=== PATIENT | male | born 1950 | race Caucasian/White ===

== ENCOUNTER 2017-11-10 23:00 | Inpatient (IN) | payer OTHER ==
[~2017-11-10] VITALS: Ht 165.1 cm; Wt 81.1 kg
[~2017-11-10 23:00] MED LIST: ALEVE220 MG PO; CIPRO500 MG PO; FLOMAX0.4 MG PO; LEVOTHYROXINE112 MCG PO; NAPROSYN500 MG PO; PAXIL40 MG PO; PERCOCET 5/31 TABLET PO; ULTRAM50 MG PO; VALTREX1000 MG PO; VICODIN 5-3001 EACH PO; VOLTAREN 1% GE100 GM TP; ZOFRAN4 MG PO
[2017-11-11 00:21] LABS: BASOPHIL (%) 0.7 % (0-1); BASOPHIL COUNT 0.1 K/uL (0-0.1); EOSINOPHIL (%) 7.9 % (0-5); EOSINOPHIL COUNT 0.6 K/uL (0-0.3); HEMATOCRIT 43.9 % (38.0-50.0); HEMOGLOBIN 15.4 G/DL (12.5-16.6); IMMATURE GRANULOCYTE (%) 0.3 % (0.0-0.7); LYMPHOCYTE (%) 18.5 % (15-42); LYMPHOCYTE COUNT 1.4 K/uL (1.0-2.8); MCH 31.2 PG (29.0-34.0); MCHC 35.1 G/DL (30.0-36.0); MCV 88.9 FL (86-99); MONOCYTE COUNT 0.9 K/uL (0-0.8); NEUTROPHIL (%) 60.6 % (45-76); NEUTROPHIL COUNT 4.5 K/uL (1.8-6.4); PLATELET COUNT 197 K/uL (156-360); RBC DIS.WIDTH-CV 12.5 % (11.8-14.6); RBC DIS.WIDTH-SD 40.5 % (39-53); RED BLOOD COUNT 4.94 M/uL (4.00-5.50); WHITE BLOOD COUNT 7.4 K/uL (4.1-10.2)
[2017-11-11 00:31] LABS: CHLORIDE 109 mEq/L (99-109); POTASSIUM 3.9 mEq/L (3.7-5.4); SODIUM 141 mEq/L (136-147)
[2017-11-11 00:33] LABS: GLUCOSE 106 mg/dL (70-99)
[2017-11-11 00:36] LABS: CREATININE 1.4 mg/dL (0.6-1.3); GFR ESTIMATE (CALCULATED) 54 mL/min/ (58.99-99999)
[2017-11-11 00:37] LABS: UREA NITROGEN (BUN) 23 mg/dL (9-23)
[2017-11-11 00:43] LABS: TROP-I INTERPRETATION NEGATIVE; TROPONIN-I < 0.01 ng/mL (0.0-0.30)
[2017-11-11] MEDS ORDERED: KENALOG,ARISTOC80 GM TP (10:55)
[2017-11-11] MEDS ORDERED: VOLTAREN 1% GE100 GM TP (10:55)
[2017-11-11] MEDS ORDERED: CYANOCOBALAM1000 MCG PO (10:56)
[2017-11-11] MEDS ORDERED: MULTI VITAMIN1 EACH PO (10:56)
[2017-11-11 17:09] VITALS: BP 130/80
[2017-11-12] VITALS: BP 123/76
[2017-11-12 07:06] LABS: HEMATOCRIT 44.6 % (38.0-50.0); MCH 30.6 PG (29.0-34.0); MCHC 33.6 G/DL (30.0-36.0); PLATELET COUNT 172 K/uL (156-360); RBC DIS.WIDTH-CV 12.6 % (11.8-14.6); RBC DIS.WIDTH-SD 41.4 % (39-53); WHITE BLOOD COUNT 11.7 K/uL (4.1-10.2)
[2017-11-12 07:31] LABS: CHLORIDE 107 MEQ/L (99-109); GFR ESTIMATE (CALCULATED) > 59 mL/min/ (58.99-99999); GLUCOSE 141 mg/dL (70-99); POTASSIUM 4.2 MEQ/L (3.7-5.4); SODIUM 140 MEQ/L (136-147); UREA NITROGEN (BUN) 21 mg/dL (9-23)
[2017-11-12 08:30] VITALS: BP 104/58
[2017-11-12] MEDS ORDERED: SOLU-MEDRO125 MG/21 IV (11:06)
[2017-11-12] MEDS ORDERED: LEVOFLOXACIN750 MG PO (11:06)
[2017-11-12] MEDS ORDERED: PANTOPRAZOLE SO40 MG PO (11:06)
[2017-11-12] MEDS ORDERED: DULERA 200 MCG/13 GM IH (11:06)
[2017-11-12] MEDS ORDERED: DUONEB 2.5-0.5 M3 ML AEROSOL (11:06)
[2017-11-12] MEDS ORDERED: SORE THROAT LO1 EAC3 MM (11:06)
[2017-11-12 15:06] VITALS: BP 129/82
[2017-11-13] VITALS: BP 129/78
[2017-11-13 00:22] VITALS: BP 119/77
[2017-11-13 07:49] VITALS: BP 119/72
[2017-11-13 16:22] VITALS: BP 125/70
[2017-11-14] VITALS: BP 129/78
[2017-11-14 07:09] LABS: CHLORIDE 108 MEQ/L (99-109); GFR ESTIMATE (CALCULATED) > 59 mL/min/ (58.99-99999); GLUCOSE 144 mg/dL (70-99); POTASSIUM 4.7 MEQ/L (3.7-5.4); SODIUM 143 MEQ/L (136-147); UREA NITROGEN (BUN) 23 mg/dL (9-23)
[2017-11-14 14:16] LABS: Neutrophil Cytoplasmic Aby Negative (Negative)
[2017-11-14 16:28] VITALS: BP 127/81
[2017-11-15] VITALS: BP 117/74
[2017-11-15 05:51] LABS: HEMATOCRIT 42.7 % (38.0-50.0); HEMOGLOBIN 14.5 G/DL (12.5-16.6); MCH 30.5 PG (29.0-34.0); MCV 89.7 FL (86-99); PLATELET COUNT 142 K/uL (156-360); RBC DIS.WIDTH-CV 12.5 % (11.8-14.6); RBC DIS.WIDTH-SD 41.1 % (39-53); RED BLOOD COUNT 4.76 M/uL (4.00-5.50); WHITE BLOOD COUNT 10.6 K/uL (4.1-10.2)
[2017-11-15 07:51] VITALS: BP 156/86
[2017-11-15] MEDS ORDERED: LEVOFLOXACIN750 MG PO (13:10)
[2017-11-15] MEDS ORDERED: PREDNISONE5 M1 PO (13:10)
[2017-11-15] MEDS ORDERED: DULERA 200 MCG/13 GM IH (13:14)
== END 2017-11-15 17:37 | disposition home or self-care (01) | DRG 196 ==
LOC: EME 23:00 → EDOF 11-11 03:56 → 5SOUTH 11-11 03:56 → ENRESERV 11-11 03:59 → 5SOUTH 11-11 16:32
PROVIDERS: Emergency Medicine; Hospitalist; Internal Medicine; Internal Medicine Pulmonary Disease
DX: J67.9 Hypersensitivity pneumonitis due to unspecified organic dust (principal); J96.01 Acute respiratory failure with hypoxia; G47.33 Obstructive sleep apnea (adult) (pediatric); E03.9 Hypothyroidism, unspecified; F32.9 Major depressive disorder, single episode, unspecified; F41.9 Anxiety disorder, unspecified; Z87.891 Personal history of nicotine dependence; Z87.442 Personal history of urinary calculi; Z80.1 Family history of malignant neoplasm of trachea, bronchus and lung; Z80.8 Family history of malignant neoplasm of other organs or systems; Z66 Do not resuscitate; J45.909 Unspecified asthma, uncomplicated; I10 Essential (primary) hypertension; I25.2 Old myocardial infarction; I25.10 Atherosclerotic heart disease of native coronary artery without angina pectoris
CPT/HCPCS: 71046; 71250; 80048; 84484; 85025; 85027; 86021 90; 86038; 87040; 87502; 93005; 94010; 94640; 94640 76; 94667; 94668; 94760; 94799; 99281; 99285; J1100; J1650; J2920; J2930; J3475; J7030